=== PATIENT | male | born 1985 | race Caucasian/White ===

== ENCOUNTER 2022-09-05 05:24 | Emergency (ER) | payer BC, MEDICARE ==
[2022-09-05] MEDS ORDERED: Prochlorperazine 10 MG/2 ML SDV IVPUSH ONE (05:37)
[2022-09-05] MEDS ORDERED: diphenhydrAMINE 50 MG/ML SDV IVPUSH ONE ×2 (05:37→06:37)
[2022-09-05] MEDS ORDERED: Ketorolac 30 MG/ML SDV IVPUSH ONE ×2 (05:37→06:37)
[2022-09-05] MEDS ORDERED: Dextrose 5%-Lactated Ringers 1,000 ML IV STA (05:37)
[2022-09-05 06:18] LABS: CORONAVIRUS COVID-19 NAA POSITIVE (NEGATIVE); INFLUENZA A NAA NEGATIVE (NEGATIVE); INFLUENZA B NAA NEGATIVE (NEGATIVE); RESPIRATORY SYNCYTIAL VIR NAA NEGATIVE (NEGATIVE)
== END 2022-09-05 08:33 | disposition home or self-care (01) ==
LOC: MW.ED 05:24
DX: U07.1 COVID-19 (principal); G43.909 Migraine, unspecified, not intractable, without status migrainosus
CPT/HCPCS: 0241U; 96361; 96374; 96375; 96376; 99283; J0780; J1200; J1885; J7121